=== PATIENT | female | born 1975 | race Caucasian/White ===

== ENCOUNTER 2022-03-12 06:09 | Day surgery (SDC) | payer OTHER ==
[2022-03-10 14:23] LABS: COVID AG,FIA SOURCE NASOPHARYNGEAL
[~2022-03-12] VITALS: Ht 154.9 cm; Wt 111.8 kg
[~2022-03-12 06:09] MED LIST: FLUT1BLS12 IH; FLUT1BLS13 IH
[2022-03-12] MEDS ORDERED: BENZOCAINE 20% 50 MCG/SPRAY 57 GM TP ONE (06:10)
[2022-03-12] MEDS ORDERED: LIDOCAINE 4% 50 ML SOLUTION TP ONE (06:10)
[2022-03-12] MEDS ORDERED: LIDOCAINE 2% 30 ML JELLY TP ONE (06:10)
[2022-03-12] MEDS ORDERED: ALBUTEROL SULFATE 2.5 MG/0.5 ML NEB SOLUTION NEB ONE (06:10)
[2022-03-12] MEDS ORDERED: SODIUM CHLORIDE 0.9% 1,000 ML IV ONE (06:30)
[2022-03-12] MEDS ORDERED: SODIUM CHLORIDE 0.9% 1,000 ML ONE (06:49)
[2022-03-12] MEDS ORDERED: FentaNYL CITRATE PF 100 MCG/2 ML VIAL ONE (07:00)
[2022-03-12] MEDS ORDERED: MIDAZOLAM HCL 5 MG/ML VIAL ONE (07:01)
[2022-03-12] MEDS ORDERED: MethylPREDNISolone SOD SUCC 125 MG/2 ML VIAL ONE (09:04)
[2022-03-12] MEDS ORDERED: MethylPREDNISolone SOD SUCC 125 MG/2 ML VIAL IVP ONE (09:15)
== END 2022-03-12 12:10 | disposition home or self-care (01) ==
LOC: SURGERY 06:09
PROVIDERS: ATTEND Internal Medicine Critical Care Medicine
DX: B37.0 Candidal stomatitis (principal); J38.4 Edema of larynx; J45.909 Unspecified asthma, uncomplicated; Z79.899 Other long term (current) drug therapy; Z98.890 Other specified postprocedural states
CPT/HCPCS: 31623; 31624; 71045; 84703; 87015; 87070; 87101; 87206; 87220; 87426; 88112; 88184; 88185; 88312; C9803; J2250; J2930; J3010; J7030; J7613; Z7610